=== PATIENT | male | born 1995 | race Two or more races ===

== ENCOUNTER 2018-03-20 21:45 | Emergency (ER) | payer MEDICAID ==
[~2018-03-20] VITALS: Ht 172.7 cm; Wt 69.9 kg
[2018-03-20] MEDS ORDERED: CLON0.5T PO (22:15)
[2018-03-20] MEDS ORDERED: BUPR300T52 PO (22:15)
--- NOTE | 2018-03-20 22:32 | NUR ---
DEVON OLIVAS AT BEDSIDE FOR MSE.
--- NOTE | 2018-03-20 22:37 | NUR ---
Patient discharged to home in stable conditon. Written and verbal after care instructions given. Patient verbalizes understanding of instructions. Pt ambulated out of ER in steady gait. All belongings wth pt. VSS. No acute distress noted.
[2018-03-20 22:38] VITALS: BP 114/56
== END 2018-03-20 22:39 | disposition home or self-care (01) ==
LOC: ER 21:48
DX: Z76.0 Encounter for issue of repeat prescription (principal); F17.210 Nicotine dependence, cigarettes, uncomplicated; F12.10 Cannabis abuse, uncomplicated; F11.10 Opioid abuse, uncomplicated; Z59.0 Homelessness; Z79.899 Other long term (current) drug therapy
CPT/HCPCS: 99283; A4663

== ENCOUNTER 2018-09-21 23:03 | Emergency (ER) | payer MEDICAID ==
[~2018-09-21] VITALS: Ht 167.6 cm; Wt 65.8 kg
[~2018-09-21 23:03] MED LIST: BUPR300T52 PO; CLON0.5T PO
[2018-09-22 05:14] VITALS: BP 122/74
== END 2018-09-22 05:15 | disposition home or self-care (01) ==
LOC: ER 23:05
DX: M79.652 Pain in left thigh (principal); F12.10 Cannabis abuse, uncomplicated; F14.10 Cocaine abuse, uncomplicated; F15.10 Other stimulant abuse, uncomplicated; Z59.0 Homelessness
CPT/HCPCS: 72170; 73551; A4663